=== PATIENT | male | born 1945 | race Caucasian/White ===

== ENCOUNTER 2021-12-30 07:14 | Day surgery (SDC) | payer MEDICARE, OTHER, SELFPAY ==
[2021-12-23 19:33] VITALS: BMI 29.3
--- NOTE | 2021-12-29 10:21 | HO.ANESPROP2 ---
Documented by User: Alyssia Sterling NP 12/29/21 10:22 HPI - Anesthesia Eval Consult details Narrative: 76yo M for Colonoscopy [facility] Past Medical History Medical History Back pain BPH (benign prostatic hyperplasia) Elevated blood sugar Hypertension Surgical History Surgical History History of colonoscopy History of hip replacement History of rotator cuff surgery Social History Social History Patient Tobacco Use Status: Former Tobacco user Use of substances other than those prescribed or required for medical reasons: No Are you DNR?: No Advance Directives: No Advance Directives Information Provided: No Advance Directives on File: No Recently lost weight without trying: No Nutrition Risks: No Nutritional Risk Meds Allergies Allergy/AdvReac Type Severity Reaction Status Date / Time No Known Allergies Allergy Verified 12/23/21 19:30 Home Medications Medication Instructions Recorded Confirmed Last Taken Type amlodipine 5 mg tablet 1 tab PO DAILY 12/23/21 12/23/21 12/30/21 History gabapentin 300 mg capsule 1 cap PO TID 12/23/21 12/23/21 12/30/21 History lactobacillus combination no.4 3 3,000 mmu cells PO DAILY 12/23/21 12/23/21 Unknown History billion cell capsule (Probiotic) metformin 500 mg tablet,extended 1 tab PO DAILY 12/23/21 12/23/21 Unknown History release 24 hr tadalafil 2.5 mg tablet 1 tab PO DAILY 12/23/21 12/23/21 Unknown History valsartan 160 mg tablet 1 tab PO DAILY 12/23/21 12/23/21 Unknown History Exam Exam Date and Time: December 29, 2021 1021 Height,Weight and Vital Signs: Height 5 ft 8 in Weight 87.543 kg Assessment and Plan Assessment Anesthesia Assessment: Chart Reviewed Documented by User: Shagufta Ordoñez MD 12/30/21 08:38 [facility] Past Medical History Medical History Back pain BPH (benign prostatic hyperplasia) Elevated blood sugar Hypertension Surgical History Surgical History History of colonoscopy History of hip replacement History of rotator cuff surgery History of Problems with Anesthesia: No Social History Social History Patient Tobacco Use Status: Former Tobacco user Use of substances other than those prescribed or required for medical reasons: No Are you DNR?: No Advance Directives: No Advance Directives Information Provided: No Advance Directives on File: No Recently lost weight without trying: No Nutrition Risks: No Nutritional Risk Meds Allergies Allergy/AdvReac Type Severity Reaction Status Date / Time No Known Allergies Allergy Verified 12/23/21 19:30 Home Medications Medication Instructions Recorded Confirmed Last Taken Type amlodipine 5 mg tablet 1 tab PO DAILY 12/23/21 12/23/21 12/30/21 History gabapentin 300 mg capsule 1 cap PO TID 12/23/21 12/23/21 12/30/21 History lactobacillus combination no.4 3 3,000 mmu cells PO DAILY 12/23/21 12/23/21 Unknown History billion cell capsule (Probiotic) metformin 500 mg tablet,extended 1 tab PO DAILY 12/23/21 12/23/21 Unknown History release 24 hr tadalafil 2.5 mg tablet 1 tab PO DAILY 12/23/21 12/23/21 Unknown History valsartan 160 mg tablet 1 tab PO DAILY 12/23/21 12/23/21 Unknown History Exam Airway Mallampati Class: III TM Dist: >3cm Neck ROM: Full Heart: RRR Lungs: CTA Assessment and Plan Assessment Anesthesia Assessment: Anesthesia Plan Discussed Final Anesthetic Review History of Problems with Anesthesia: No NPO: Yes ASA Class: II Final Preanesthetic Review: No Changes in Pt Med Stat, Meds/Allgs Chart Reviewed and Anes Risks/Benef Reviewed Patient Risk: Low Procedure Risk: Low Anesthetic Plan Anesthetic Plan: MAC: Disposition: Standard PACU
[2021-12-30 07:30] VITALS: BP 173/98; PULSE 81; RESP 18; TEMP 36.3; O2SAT 97
[2021-12-30 07:43] LABS: Glucose, Whole Blood 124 mg/dL (60-115)
[2021-12-30] MEDS: Lactated Ringers 1,000 ML 100 ML IVCONT (07:55)
--- NOTE | 2021-12-30 08:30 | MHC.SHP ---
Pre-Procedural Eval Section A Date of Service: 12/30/21 Section B Chief Complaint: screening,hx of polyps Details of Present Illness: see H&P no changes Relevant Family History (Specify if Yes): No Relevant Social History: None Present Medications: see Short Stay Collaborative assessment Medical History: No relevant PMH History of Previous Operations: No relevant previous surgery Allergies: Allergies Allergy/AdvReac Type Severity Reaction Status Date / Time No Known Allergies Allergy Verified 12/23/21 19:30 Review of Systems Sugical H&P ROS: Negative: Constitution, Cardiovascular, Respiratory, Neurological, Psychiatric, Hem-Onc, Allergic/Immunologic, Gastrointestinal, Genitourinary, Musculoskeletal, Integumentary, Endocrine and Eyes/Ears/Nose/Throat Exam Surgical H&P Exam: Normal: HEENT, Normal: Heart, Normal: Lungs, Normal: Extremities, Normal: Abdomen, Normal: Skin and Normal: Neurological Plan Diagnosis/Plan: Unchanged I have reviewed the history and physical and performed a pertinent physical examination on my patient. No changes have occurred unless specified.
[2021-12-30 09:12] VITALS: BP 110/59; PULSE 61; RESP 20; TEMP 36.2; O2SAT 96
--- NOTE | 2021-12-30 09:12 | PM.OP ---
Brief Operative Note Date of Service: 12/30/21 Pre-op diagnosis: screening Post-op diagnosis: same (colon polyps) Procedure: colonoscopy Surgeon: Usama Wilson Anesthesia: MAC Was an Audio Visual Tech used for this Procedure?: No Estimated blood loss (mL): 2 Pathology: other (see path req) Condition: stable Disposition: PACU
[2021-12-30 09:27] VITALS: BP 142/85; PULSE 61; RESP 18; TEMP 36.1; O2SAT 99
--- NOTE | 2021-12-30 19:22 | OP_ITS ---
SURGEON: Usama Wilson MD INDICATIONS: Colon cancer screening and prior history of adenomatous colon polyps. PREOPERATIVE DIAGNOSIS: POSTOPERATIVE DIAGNOSIS: PROCEDURE PERFORMED: ESTIMATED BLOOD LOSS: COMPLICATIONS: ANESTHESIA: ASSISTANTS: SPECIMENS: PROCEDURE: Colonoscopy to the terminal ileum with snare polypectomy. MEDICATIONS: Monitored anesthesia care. DESCRIPTION OF PROCEDURE: The history and physical performed. The risks and benefits of the procedure were explained to the patient. Informed consent was obtained. The patient was placed in the left lateral decubitus position. A digital rectal exam was performed and was found to be normal. The Olympus pediatric video colonoscope was introduced into the rectum and advanced to the cecum without difficulty. The cecum was identified by transillumination, palpation, and identification of the ileocecal valve. Examination was performed. The scope was removed. He tolerated the procedure well and was transferred to recovery area in stable condition. FINDINGS: The terminal ileum was examined and appeared normal. The visualized colonic mucosa was within normal limits without evidence of masses or ulcers. Multiple colonic polyps were identified and removed with a snare. Two of the largest were greater than 10 mm in diameter. Polyps were located in the cecum measuring 12 mm, at 60 cm under 10 mm, at 50 cm x 3, 1 measured 12 mm. The other 2 were under 10 mm. An 8 mm polyp at 30 cm was snared.. Two rectal polyps were removed, 1 measuring 10 mm and 1 measured to 5 mm. There was mild sigmoid diverticulosis. There was some liquid stool coating the mucosa mainly in the sigmoid and cecum. This was washed and suctioned. Retroflexed examination showed internal hemorrhoids. IMPRESSION: Colon polyps. RECOMMENDATION: Follow up the biopsy results. MD ANKUR Turner/CHI / [id number] MTDD
== END 2021-12-30 09:54 | disposition home or self-care (01) ==
PROVIDERS: PCP Internal Medicine; Visit Provider Internal Medicine Gastroenterology
PROC: 0DJD8ZZ Inspection of Lower Intestinal Tract, Via Natural or Artificial Opening Endoscopic (ICD-10-PCS; CPT 45378; principal; 2021-12-30 08:40)
DX: Z12.11 Encounter for screening for malignant neoplasm of colon (principal); Z86.010 Personal history of colon polyps; D12.0 Benign neoplasm of cecum; D12.4 Benign neoplasm of descending colon; D12.5 Benign neoplasm of sigmoid colon; D12.8 Benign neoplasm of rectum; K57.30 Diverticulosis of large intestine without perforation or abscess without bleeding; K64.8 Other hemorrhoids; I10 Essential (primary) hypertension; N40.0 Benign prostatic hyperplasia without lower urinary tract symptoms; R73.9 Hyperglycemia, unspecified; Z79.84 Long term (current) use of oral hypoglycemic drugs; Z79.899 Other long term (current) drug therapy; Z96.649 Presence of unspecified artificial hip joint; Z87.891 Personal history of nicotine dependence
CPT/HCPCS: 45385; 82947; 88305

== ENCOUNTER 2025-02-06 08:44 | Day surgery (SDC) | payer MEDICARE, OTHER, SELFPAY ==
--- OUTSIDE RECORDS SUMMARY | 2025-02-01 15:43 | XMS_ITS ---
Author Organization [facility] Address [address] [place] [id number] Care Team Providers Care Meat Grinder Name Role Phone Brendan GREER, Dilan Primary Care Provider Usama Toro Jr Unavailable Allergies No Known Allergies REASON FOR VISIT Patient presents today for a recall colonoscopy Medications Medication SIG (Take, Route, Frequency, Duration) Notes Start Date End Date Status Carvedilol 12.5 MG Oral for 90 Days Active Gabapentin (Once-Daily) 300 (9) & 600(24) MG as directed Orally Activ e metFORMIN HCl ER 500 MG 1 tablet with ev ening meal Orally Once a day for 30 day(s) Active amLODIPine Besylate 5 MG 1 tablet Orally Once a day for 30 day(s) Active MiraLax (colon prep) 17 GM/SCOOP mixed with Gatorade or Crystal Light Orally begin at 5:00 p.m. the day before the procedure for 1 day 12/20/2024 Active Probiotic - as directed Orally Active Valsartan 160 MG 1 tablet Orally Once a day for 30 day(s) Active Rosuvastatin Calcium 5 MG Oral for 30 Days Active Tadalafil 2.5 MG 1 tablet Orally Once a day for 30 day(s) Active Tamsulosin HCl 0.4 MG Oral for 90 Days Active Social History Tobacco Use: Social History Observation Description Date Details (start date - stop date) Never Smoker NA - NA Tobacco Use/Smoking Question Answer Notes Patient is a nonsmoker Alcohol Screen Question Answer Notes Did you have a drink containing alcohol in the p ast year? No Points 0 Interpretation Negative Problems Problem Type SNOMED Code ICD Code Onset Dates Problem Status W/U Status Risk Notes Problem 284597707 Personal history of colonic polyps (Z86.0100) Active confirmed Vital Signs Temperature 97.3 degrees Fahrenheit 12/20/19 25 Blood pressure systolic 001 mm Hg 12/20/19 25 Blood pressure diastolic 01 mm Hg 025 Height 68 in 12/20/2024 Weight 192 lbs 12/20/2024 BMI 29.19 kg/m2 12/20/2024 Encounters Encounter Location Date Provider Diagnosis [facility] [address] [place] [address] 12/20/2024 Usama Wilson Jr manager terminal (current) use of oral hypoglycemic drugs Z79.84 ; Colon cancer screening Z12.11 and Personal history of colonic polyps Z86.0100 Assessments Encounter Date Diagnosis (ICD Code) Assessment Notes Treatment Notes Treatment Clinical Notes Section Notes 12/20/2024 retirement (current) use of oral hypoglycemic drugs (ICD-10 - Z79.84) We discussed colonoscopy today. We discussed risks and benefits of the procedure today. He understands these and agrees to proceed. This will be scheduled at his convenience. He is advised to stop metformin the day before the procedure. 12/20/2024 Colon cancer screening (ICD-10 - Z12.11) Colonoscopy material was printed We discussed colonoscopy today. We discussed risks and benefits of the procedure today. He understands these and agrees to proceed. This will be scheduled at his convenience. He is advised to stop metformin the day before the procedure. 12/20/2024 Personal history of colonic polyps (ICD-10 - Z86.0100) We discussed colonoscopy today. We discussed risks and benefits of the procedure today. He understands these and agrees to proceed. This will be scheduled at his convenience. He is advised to stop metformin the day before the procedure. Plan Of Treatment Medication Medication Name Sig Start Date Stop Date Notes MiraLax (colon prep) 17 GM/SCOOP mixed with Gatorade or Crystal Light Orally begin at 5:00 p.m. the day before the procedure for 1 day 12/20/2024 Treatment Notes Assessment Notes Colon cancer screening Colonoscopy mater ial was printed Future Test Test Name Order Date COLONOSCOPY 12/20/2024 Next Appt Details Follow Up: 1 Year, Reason: Provider Name:Usama villalobos Jr, 02/06/2025 09:50:00 AM, [address] [facility] , [place], [place], [id number], Progress Notes * ALFONSO GODWIN NDOB: [birth year] (79 yo M)Acc No.[id number]:12/20/2024 Progress Notes Patient:ALFONSO HUNG N Provider:?Usama Wilson MD :1945???Age:79 Y???Sex:Male Nathaniel e:12/20/2024 Address:[address] [place] [address] [place] , [id number] Pcp:Dilan Cardona MD Subjective: * Chief Complaints: * ???1. Patient presents today for a recall colonoscopy. * HPI: ???New symptom(s):? Alfonso is a pleasant 79-year-old man seen today in consultation. He has a history of colon polyps and last underwent colonoscopy in November 2021 with removal of multiple tubular adenomas. Since that time, he's done well. He has no complaints of rectal bleeding or change in his bowel habits. Weight and appetite have been stable. * ROS:?General/Constitutional:?Change in appetite?denies.?Fatigue?denies.?ENT:?Patient denies?difficulty swallowing.?Respiratory:?Patient denies?shortness of breath.?Cardiovascular:?Patient denies?chest pain.?Gastrointestinal:?Comments?See HPI for details.?Genitourinary:?Difficulty urinating?denies.?Incontinence?denies.?Musculoskeletal:?Patient denies?muscle aches.?Skin:?Patient denies?pruritis.?Neurologic:?Patient denies?low back pain.?Psychiatric:?Patient denies?mental or physical abuse.? * Medical History:?Hypertensio n, BPH, Diabetes mellitus type 2, Back pain, Colon polyps,, JULIA/CPAP. * Surgical History:?back , rot ator cuff 2003, hip replacement 2005. * Family History:?Father: dece ased.?Mother: , diagnosed with HTN (hypertension), Heart disease.? No family history liver cancer, colon cancer. Patient has colon polyps. * Social History:?Tobacco Use:?Tobacco Use/Smoking?Patient is a?nonsmoker.?Drugs/Alcohol:?Alcohol Screen?Did you have a drink containing alcohol in the past year??No,?Points?0,?Interpretation?Negative.?Miscellaneous:?Marital status: . Occupation: works full-time. * Medications:?Taking Probioti c - Tablet Chewable as directed Orally , Taking Valsartan 160 MG Tablet 1 tablet Orally Once a day, Taking Tadalafil 2.5 MG Tablet 1 tablet Orally Once a day, Taking metFORMIN HCl ER 500 MG Tablet Extended Release 24 Hour 1 tablet with evening meal Orally Once a day, Taking amLODIPine Besylate 5 MG Tablet 1 tablet Orally Once a day, Taking Gabapentin (Once-Daily) 300 (9) & 600(24) MG Miscellaneous as directed Orally , Taking Carvedilol 12.5 MG Tablet Oral , Taking Tamsulosin HCl 0.4 MG Capsule Oral , Taking Rosuvastatin Calcium 5 MG Tablet Oral , Discontinued MiraLax (colon prep) 17 GM/SCOOP Powder mixed with Gatorade or Crystal Light Orally begin at 5:00 p.m. the day before the procedure, Medication List reviewed and reconciled with the patient * Allergies:?N.K.D.A. Objective: * Vitals:?Wt:192 lbs, Ht: 68 i n, BMI:29.19 Index, BP:001/01 mm Hg, Temp:97.3, Wt- k.09. * Examination: ???General Examination: ?GENERAL APPEARANCE:?in no acute distress.?HEAD:?normocephalic.?EYES:?sclera non-icteric.?ORAL CAVITY:?mucosa moist.?NECK/THYROID:?no lymphadenopathy.?SKIN:?anicteric.?HEART:?S1, S2 normal, no murmurs.?LUNGS:?clear to auscultation bilaterally.?CHEST:?normal shape and expansion.?ABDOMEN:?soft, nontender, nondistended, bowel sounds present, no organomegaly .?EXTREMITIES:?no clubbing, cyanosis, or edema.?PSYCH:?cognitive function intact.? Assessment: * Assessment: 1.?retirement (current) use o f oral hypoglycemic drugs - Z79.84 (Primary)?2.?Colon cancer screening - Z12.11?3.?Personal history of colonic polyps - Z86.0100? We discussed colonoscopy tod ay. We discussed risks and benefits of the procedure today. He understands these and agrees to proceed. This will be scheduled at his convenience. He is advised to stop metformin the day before the procedure. Plan: * Treatment: Notes: Colonoscopy material was printed?? * Procedure Codes:?G9903 Pt sc rn tbco id as non user, G9744 PATIENT NOT ELIG D/T ACTIVE DX HTN * Preventive Medicine:? ??Counseling:?Care goal follow-up plan:?Above Normal BMI Follow-up?Dietary management education, guidance, and counseling,?BMI management provided?No.? ??Screenings:?Fall Risk Screening?Fall Risk Assessment:?No falls in the past year,?Screening:?No falls in the past year,?Assessment:?Not performed, no reason specified,?Plan of Care:?Not documented, no reason specified.? * Follow Up:?1 Year * * Sign off status: Completed true * Provider:?Usama Wilson MD Date:?0 12/20/2024 Generated for Julio savage/Leighton/eTscarlettsmnicholas on:?02/01/2025 03:43 PM EDT History and Physical Notes * HPI (History of Present Illness) Category Sub-Category Detail Notes Category Not es New symptom(s) Alfonso is a ple asant 79-year-old man seen today in consultation. He has a history of colon polyps and last underwent colonoscopy in November 2021 with removal of multiple tubular adenomas. Since that time, he's done well. He has no complaints of rectal bleeding or change in his bowel habits. Weight and appetite have been stable. Examination Category Sub-Category Detail Notes Category Not es General Examination GENERAL APPEARANCE: in no acute di stress HEAD: normocephalic EYES: sclera non-icteric NECK/THYROID: no lymphadenopathy HEART: S1, S2 normal, no mu rmurs CHEST: normal shape and exp ansion LUNGS: clear to auscultatio n bilaterally ABDOMEN: soft, nontender, non distended, bowel sounds present, no organomegaly SKIN: anicteric EXTREMITIES: no clubbing, cyanosi s, or edema PSYCH: cognitive function i ntact ORAL CAVITY: mucosa moist
--- OUTSIDE RECORDS SUMMARY | 2025-02-01 15:43 | XMS_ITS | Patient Health Record ---
Author Organization [facility] Address [address] [place] [address] Care Team Providers Care Commercial Stripper Name Role Phone Brendan GREER, Dilan Primary Care Provider Usama Toro Jr Unavailable [phone] Allergies No Known Allergies Reason For Referral No Information Medications Medication SIG (Take, Route, Frequency, Duration) Notes Start Date End Date Status MiraLax (colon prep) 17 GM/SCOOP mixed with Gatorade or Crystal Light Orally begin at 5:00 p.m. the day before the procedure for 1 day 12/20/2024 Active Probiotic - as directed Orally Active Valsartan 160 MG 1 tablet Orally Once a day for 30 day(s) Active Rosuvastatin Calcium 5 MG Oral for 30 Days Active Carvedilol 12.5 MG Oral for 90 Days Active Tamsulosin HCl 0.4 MG Oral for 90 Days Active Gabapentin (Once-Daily) 300 (9) & 600(24) MG as directed Orally Activ e metFORMIN HCl ER 500 MG 1 tablet with ev ening meal Orally Once a day for 30 day(s) Active amLODIPine Besylate 5 MG 1 tablet Orally Once a day for 30 day(s) Active Tadalafil 2.5 MG 1 tablet Orally Once a day for 30 day(s) Active Immunizations Vaccine Route Administration Date Status Comme nts Influenza Unknown 09/17/2021 Administered Influenza Unknown 12/22/2023 Administered Social History Tobacco Use: Social History Observation [...] Problem Status W/U Status Risk Notes Problem 903370740 Colon cancer screening (Z12.11) Active confirmed Problem 151346418 Personal history of colonic polyps (Z86.010) Active confirmed Problem History of polyp of colon (794373226) History of colon polyps (Z86.010) Active confirmed Problem 968434527348809 half-way (current) use of oral hypoglycemic drugs (Z79.84) Active confirmed Problem 862391800 Personal history of colonic polyps (Z86.0100) Active confirmed Vital Signs Temperature 97.3 degrees Fahrenheit 12/20/2024 Blood pressure diastolic 01 mm Hg 12/20/2024 Height 68 in 12/20/2024 Blood pressure systolic 001 mm Hg 12/20/2024 Weight 192 lbs 12/20/2024 BMI 29.19 kg/m2 12/20/2024 Encounters Encounter Location Date Provider Diagnosis [facility] [address] [place] [address] 12/20/2024 Usama Wilson Jr ocean transportation intermediary (current) use of oral hypoglycemic drugs Z79.84 ; Colon cancer screening Z12.11 and Personal history of colonic polyps Z86.0100 Assessments Encounter Date Diagnosis (ICD Code) Assessment Notes Treatment Notes Treatment Clinical Notes Section Notes 12/20/2024 Colon cancer screening (ICD-10 - Z12.11) Colonoscopy material was printed We discussed colonoscopy today. We discussed risks and benefits of the procedure today. He understands these and agrees to proceed. This will be scheduled at his convenience. He is advised to stop metformin the day before the procedure. 12/20/2024 half-way (current) use of oral hypoglycemic drugs (ICD-10 [...] day before the procedure. Plan Of Treatment Future Test Test Name Order Date COLONOSCOPY 12/11/2021 COLONOSCOPY 12/20/2024 Next Appt Details Provider Name:Usama snellgeorge Sharma, 02/06/2025 09:50:00 AM, [address] [place] [address] , [place], [place], [phone], Insurance Providers Payer Name Payer Address Payer Phone Subscriber Number Group Number Insured Name Patient Relationship to Insured Coverage Start Date Coverage End Date MEDICARE OF [place] [address] [place] [address] [id number] MANGO BECERRA Self - patient is the insured [facility] Att[facility] Claims [address] [place] [address] [phone] [id number] MANGO BECERRA Self - patient is the insured Medical (General) History Medical History History ICD Code Hypertension BPH Diabetes mellitus type 2 Back pain Colon polyps, JULIA/CPAP Surgical History Surgery Date(Month/Year) hip replacement 2005 rotator cuff 2004 back
--- OUTSIDE RECORDS SUMMARY | 2025-02-01 15:43 | XMS_ITS | Clinical Summary ---
Author Organization [facility] Address [address] [place] [address] Care Team Providers Care Supervisor Concrete Block Plant Name Role Phone Unavailable Primary Care Provider Unavailabl e Social History Tobacco Use Types Packs/Day Years Used Date Smoking Tobacco: Never Assessed Sex and Gender Information Value Date Recorded Sex Assigned at Not on file Legal Sex Male 11:26 AM EST Gender Identity Not on file Sexual Orientation Not on file Plan of Treatment Health Maintenance Due Date Last Done Comments DTaP,Tdap,and Td Vaccines (1 - Tdap) 1966 Pneumococcal Vaccine: 50+ Ye ars (1 of 1 - PCV) 1997 Zoster Vaccines (1 of 2) 1997 RSV Immunization Adult Patie nts (1 - 1-dose 75+ series) 2022 COVID-19 Vaccine ( - 2023-2 5 season) 2024 Influenza Vaccine (#1) 2024 Cholesterol Screening (Lipid Panel) 08/09/2024 Depression Screening 08/09/2024 Falls Risk Assessment 08/09/2024 Hepatitis C Screening 08/09/2024 Social Influencers of Health Screening 08/09/2024 HIB Vaccines Aged Out No longer eligi ble based on patient's age to complete this topic HPV Vaccines Aged Out No longer eligi ble based on patient's age to complete this topic Hepatitis A Vaccines Aged Out No long er eligible based on patient's age to complete this topic Hepatitis B Vaccines Aged Out No long er eligible based on patient's age to complete this topic IPV Vaccines Aged Out No longer eligi ble based on patient's age to complete this topic MMR Vaccines Aged Out No longer eligi ble based on patient's age to complete this topic Meningococcal ACWY Vaccine Aged Out N o longer eligible based on patient's age to complete this topic Meningococcal B Vacine Aged Out No lo nger eligible based on patient's age to complete this topic RSV Immunization Patients Un zheng 20 months Aged Out No longer eligible b ased on patient's age to complete this topic Varicella Vaccines Aged Out No longer eligible based on patient's age to complete this topic
[2025-02-02 13:26] VITALS: BMI 29.2
[2025-02-06 08:53] VITALS: BP 159/109; PULSE 64; RESP 18; TEMP 36.6; O2SAT 98; BMI 28.0
[2025-02-06 09:07] LABS: Glucose, Whole Blood 145 mg/dL (60-115)
[2025-02-06] MEDS: Lactated Ringers 1,000 ML 100 ML IVCONT (09:08)
--- NOTE | 2025-02-06 09:15 | MHC.SHP ---
Pre-Procedural Eval Section A - 24 Hr Update-Section A only Date of Service: 02/06/25 Section B - Complete if H&P > 30 days Chief Complaint: scfreening Details of Present Illness: see H&P nno changes Relevant Family History (Specify if Yes): No Relevant Social History: None Present Medications: see Short Stay Collaborative assessment Medical History: No relevant PMH Allergies: Allergies Allergy/AdvReac Type Severity Reaction Status Date / Time No Known Allergies Allergy Verified 12/23/21 19:30 Review of Systems Sugical H&P ROS: Negative: Constitution, Cardiovascular, Respiratory, Neurological, Psychiatric, Hem-Onc, Allergic/Immunologic, Gastrointestinal, Genitourinary, Musculoskeletal, Integumentary, Endocrine and Eyes/Ears/Nose/Throat Exam Surgical H&P Exam: Normal: HEENT, Normal: Heart, Normal: Lungs, Normal: Extremities, Normal: Abdomen, Normal: Skin and Normal: Neurological Plan Diagnosis/Plan: Unchanged I have reviewed the history and physical and performed a pertinent physical examination on my patient. No changes have occurred unless specified. Time Spent With Patient Time: Total time managing care of this patient today ____ minutes.
--- NOTE | 2025-02-06 09:16 | HO.ANESPROP2 ---
Documented by User: Alyssia Sterling NP 02/05/25 09:37 HPI - Anesthesia Eval Consult details Narrative: 79yo M for Colonoscopy FORMERLY [facility], [facility]–1983 Past Medical History Medical History (Updated 02/02/25 @ 13:25 by Savannah Mosqueda RN) Sleep apnea Diabetes Back pain Elevated blood sugar BPH (benign prostatic hyperplasia) Hypertension Surgical History Surgical History (Updated 02/02/25 @ 13:26 by Savannah Mosqueda RN) History of back surgery History of hip replacement History of rotator cuff surgery History of colonoscopy History of Problems with Anesthesia: No Social History Social History (Updated 02/02/25 @ 13:29 by Savannah Mosqueda RN) Household Members: Spouse Patient Tobacco Use Status: Former Tobacco user Have you been hit, kicked, punched, or otherwise hurt by someone within the past year? If so, by whom?: No Are you DNR?: No Advance Directives: No Advance Directives Information Provided: Yes Meds Allergies Allergy/AdvReac Type Severity Reaction Status Date / Time No Known Allergies Allergy Verified 12/23/21 19:30 Home Medications ?Medication ?Instructions ?Recorded ?Confirmed ?Last Taken ?Type amlodipine 5 mg tablet 1 tab PO DAILY 12/23/21 02/02/25 02/06/25 History gabapentin 300 mg capsule 1 cap PO TID 12/23/21 02/02/25 12/30/21 History lactobacillus combination no.4 3 3,000 mmu cells PO DAILY 12/23/21 12/23/21 Unknown History billion cell capsule (Probiotic) metformin 500 mg tablet,extended 1 tab PO DAILY 12/23/21 02/02/25 Unknown History release 24 hr valsartan 160 mg tablet 1 tab PO DAILY 12/23/21 12/23/21 Unknown History carvedilol 12.5 mg tablet 12.5 mg PO BID 02/02/25 02/02/25 02/06/25 History Exam Height,Weight and Vital Signs: Height 5 ft 8 in Weight 87.09 kg Assessment and Plan Assessment Anesthesia Assessment: Chart Reviewed Final Anesthetic Review History of Problems with Anesthesia: No Documented by User: Inocencia Lin DO 02/06/25 09:17 FORMERLY [facility], [facility] Past Medical History Medical History (Updated 02/02/25 @ 13:25 by Savannah Mosqueda RN) Sleep apnea Diabetes Back pain Elevated blood sugar BPH (benign prostatic hyperplasia) Hypertension Family History Family history of problems with anesthesia: No Surgical History Surgical History (Updated 02/02/25 @ 13:26 by Savannah Mosqueda, MORGAN) History of back surgery History of hip replacement History of rotator cuff surgery History of colonoscopy History of Problems with Anesthesia: No Social History Social History (Updated 02/02/25 @ 13:29 by Savannah Mosqueda RN) Household Members: Spouse Patient Tobacco Use Status: Former Tobacco user Have you been hit, kicked, punched, or otherwise hurt by someone within the past year? If so, by whom?: No Are you DNR?: No Advance Directives: No Advance Directives Information Provided: Yes Meds Allergies Allergy/AdvReac Type Severity Reaction Status Date / Time No Known Allergies Allergy Verified 12/23/21 19:30 Home Medications ?Medication ?Instructions ?Recorded ?Confirmed ?Last Taken ?Type amlodipine 5 mg tablet 1 tab PO DAILY 12/23/21 02/02/25 02/06/25 History gabapentin 300 mg capsule 1 cap PO TID 12/23/21 02/02/25 12/30/21 History lactobacillus combination no.4 3 3,000 mmu cells PO DAILY 12/23/21 12/23/21 Unknown History billion cell capsule (Probiotic) metformin 500 mg tablet,extended 1 tab PO DAILY 12/23/21 02/02/25 Unknown History release 24 hr valsartan 160 mg tablet 1 tab PO DAILY 12/23/21 12/23/21 Unknown History carvedilol 12.5 mg tablet 12.5 mg PO BID 02/02/25 02/02/25 02/06/25 History Exam Exam Date and Time: 02/06/25 0915 Height,Weight and Vital Signs: Height 5 ft 8 in Weight 87.09 kg Vital Signs Temperature 97.8 F 02/06/25 08:53 Pulse Rate 64 02/06/25 08:53 Respiratory Rate 18 02/06/25 08:53 Blood Pressure 159/109 H 02/06/25 08:53 Pulse Oximetry 98 02/06/25 08:53 Oxygen Delivery Method Room Air 02/06/25 08:53 Temperature 97.8 F 02/06/25 08:53 Pulse Rate 64 02/06/25 08:53 Respiratory Rate 18 02/06/25 08:53 Blood Pressure 159/109 H 02/06/25 08:53 Pulse Oximetry 98 02/06/25 08:53 Oxygen Delivery Method Room Air 02/06/25 08:53 Airway Mallampati Class: II TM Dist: >3cm Neck ROM: Full Denture: Upper Partial: Lower (bridge) Heart: S1S2 Lungs: CTAB Assessment and Plan Assessment Anesthesia Assessment: Anesthesia Plan Discussed and Chart Reviewed Final Anesthetic Review Family History of Problems with Anesthesia: No History of Problems with Anesthesia: No NPO: Yes ASA Class: II Final Preanesthetic Review: No Changes in Pt Med Stat, Meds/Allgs Chart Reviewed, Consent Obtained/Reviewed and Anes Risks/Benef Reviewed Patient Risk: Low Procedure Risk: Low Anesthetic Plan Anesthetic Plan: MAC: and Agree w/ Assess. and Plan Disposition: Standard PACU
[2025-02-06 09:56] VITALS: BP 113/55; PULSE 54; RESP 16; TEMP 36.4; O2SAT 98
[2025-02-06 10:11] VITALS: BP 125/57; PULSE 55; RESP 16; TEMP 36.4; O2SAT 100
--- NOTE | 2025-02-06 10:38 | OP_ITS ---
DATE OF SERVICE: 02/06/2025 SURGEON: Usama Wilson MD INDICATIONS: Colon cancer screening and prior history of adenomatous colon polyps. PREOPERATIVE DIAGNOSIS: POSTOPERATIVE DIAGNOSIS: PROCEDURE PERFORMED: Colonoscopy to the terminal ileum with snare polypectomy and biopsy. ESTIMATED BLOOD LOSS: COMPLICATIONS: ANESTHESIA: Monitored anesthesia care. ASSISTANTS: SPECIMENS: DESCRIPTION OF PROCEDURE: A history and physical were performed. The risks and benefits of the procedure were explained to the patient. Informed consent was obtained. The patient was placed in the left lateral decubitus position. A digital rectal exam was performed and was found to be normal. The Olympus pediatric videocolonoscope was introduced in the rectum and advanced to the cecum. The cecum was identified by transillumination, palpation, and identification of ileocecal valve. Examination was performed. The scope was removed. He tolerated the procedure well and was returned to recovery area in stable condition. FINDINGS: The terminal ileum was examined and appeared normal. The visualized colonic mucosa was normal. There was some liquid stool, which was washed and suctioned. This limited the examination for detection of small polyps. In the cecum, there were 2 less than 5 mm polyps, which were removed with biopsy forceps. At 45 cm, a 10 mm polyp, which was removed with a hot snare and recovered via suction. No other polyps were identified. There was moderate sigmoid diverticulosis. Retroflexed examination showed moderate-sized internal hemorrhoids. IMPRESSION: Colon polyps. RECOMMENDATION: Follow up the biopsy results. MD ANKUR Turner/[facility] / [id number] [facility]
== END 2025-02-06 10:45 | disposition home or self-care (01) ==
PROVIDERS: PCP Internal Medicine; Visit Provider Internal Medicine Gastroenterology
PROC: 0DJD8ZZ Inspection of Lower Intestinal Tract, Via Natural or Artificial Opening Endoscopic (ICD-10-PCS; CPT 45378; principal; 2025-02-06 09:50)
DX: Z12.11 Encounter for screening for malignant neoplasm of colon (principal); D12.0 Benign neoplasm of cecum; D12.5 Benign neoplasm of sigmoid colon; K57.30 Diverticulosis of large intestine without perforation or abscess without bleeding; K64.8 Other hemorrhoids; Z86.0101 Personal history of adenomatous and serrated colon polyps; E11.9 Type 2 diabetes mellitus without complications; I10 Essential (primary) hypertension; G47.33 Obstructive sleep apnea (adult) (pediatric); Z99.89 Dependence on other enabling machines and devices; Z79.84 Long term (current) use of oral hypoglycemic drugs; Z79.899 Other long term (current) drug therapy
CPT/HCPCS: 45385; 45380; 82947; 88305; J2003; J2704